=== PATIENT | female | born 1985 | race Two or more races ===

== ENCOUNTER 2017-09-19 13:26 | Emergency (ER) | payer OTHER ==
[~2017-09-19] VITALS: Ht 147.3 cm; Wt 38.6 kg
[2017-09-19 13:26] VITALS: BP 107/67
== END 2017-09-19 14:17 | disposition home or self-care (01) ==
LOC: ER 13:30
DX: R07.89 Other chest pain (principal); N64.4 Mastodynia; F10.10 Alcohol abuse, uncomplicated; F17.200 Nicotine dependence, unspecified, uncomplicated
CPT/HCPCS: 99282; 99406; A4606; Z7610

== ENCOUNTER 2020-06-01 10:53 | Emergency (ER) | payer OTHER ==
[~2020-06-01] VITALS: Ht 147.3 cm; Wt 39.0 kg
[2020-06-01 10:58] VITALS: BP 102/63
== END 2020-06-01 11:26 | disposition home or self-care (01) ==
LOC: ER 10:54
DX: S09.8XXA Other specified injuries of head, initial encounter (principal); V49.49XA Driver injured in collision with other motor vehicles in traffic accident, initial encounter; Y93.89 Activity, other specified; Y92.488 Other paved roadways as the place of occurrence of the external cause; Y99.8 Other external cause status